=== PATIENT | male | born 1980 | race Caucasian/White ===

== ENCOUNTER 2019-05-24 11:04 | Outpatient (CLI) | payer BC, SELFPAY ==
[2019-05-24 11:29] LABS: Cholesterol 294 mg/dL (0-200); HDL Direct 40 mg/dL; Triglycerides 98 mg/dL (<150)
[2019-05-24 11:40] LABS: LDL Cholesterol Direct 234 mg/dL
== END 2019-05-24 11:05 | disposition home or self-care (01) ==
LOC: ANHLAB 11:05
PROVIDERS: PCP Family Medicine; Visit Provider Nurse Practitioner Family
DX: E78.00 Pure hypercholesterolemia, unspecified (principal)
CPT/HCPCS: 36415; 80061

== ENCOUNTER 2019-08-23 11:14 | Outpatient (CLI) | payer BC, SELFPAY ==
[2019-08-23 11:55] LABS: Alanine Aminotransferase 34 U/L (4-50); Albumin Level 4.5 g/dL (3.5-5.1); Alkaline Phosphatase 81 U/L (38-126); Aspartate Amino Transferase 29 U/L (17-59); Bilirubin,Total 0.5 mg/dL (0.2-1.3); Blood Urea Nitrogen 12 mg/dL (9-20); Calcium 8.9 mg/dL (8.4-10.2); Carbon Dioxide 31 mmol/L (22-30); Chloride 104 mmol/L (98-107); Cholesterol 174 mg/dL (0-200); Estimated Glomerular Filt Rate > 60; Glucose 109 mg/dL (75-110); HDL Direct 35 mg/dL; Potassium 4.9 mmol/L (3.4-5.0); Sodium 140 mmol/L (137-145); Triglycerides 88 mg/dL (<150)
[2019-08-23 12:07] LABS: LDL Cholesterol Direct 112 mg/dL
== END 2019-08-23 11:15 | disposition home or self-care (01) ==
PROVIDERS: PCP Family Medicine; Visit Provider Internal Medicine Cardiovascular Disease
DX: E78.5 Hyperlipidemia, unspecified (principal)
CPT/HCPCS: 36415; 80053; 80061

== ENCOUNTER 2020-09-05 14:07 | Outpatient (CLI) | payer BC, SELFPAY ==
[2020-09-05 14:43] LABS: Alanine Aminotransferase 27 U/L (4-50); Albumin Level 4.7 g/dL (3.5-5.1); Alkaline Phosphatase 92 U/L (38-126); Anion Gap 4 mmol/L (8-16); Aspartate Amino Transferase 24 U/L (17-59); Bilirubin,Total 0.6 mg/dL (0.2-1.3); Blood Urea Nitrogen 11 mg/dL (9-20); Calcium 9.5 mg/dL (8.4-10.2); Carbon Dioxide 32 mmol/L (22-30); Chloride 103 mmol/L (98-107); Cholesterol 195 mg/dL (0-200); Estimated Glomerular Filt Rate > 60; Glucose 99 mg/dL (75-110); HDL Direct 39 mg/dL; Potassium 4.3 mmol/L (3.4-5.0); Sodium 139 mmol/L (137-145); Triglycerides 141 mg/dL (<150)
[2020-09-05 14:54] LABS: LDL Cholesterol Direct 116 mg/dL
== END 2020-09-05 14:08 | disposition home or self-care (01) ==
PROVIDERS: PCP Family Medicine; Visit Provider Internal Medicine Cardiovascular Disease
DX: E78.5 Hyperlipidemia, unspecified (principal)
CPT/HCPCS: 36415; 80053; 80061

== ENCOUNTER 2021-06-01 11:50 | Outpatient (CLI) | payer BC, SELFPAY ==
[2021-06-01 12:08] LABS: Hematocrit 47.1 % (42.0-52.0); Hemoglobin 15.8 g/dL (14.0-18.0); Mean Corpuscular HGB Conc 33.5 g/dl (32-36); Mean Corpuscular Hemoglobin 28.8 pg (26-34); Mean Corpuscular Volume 85.9 fl (80-100); Mean Platelet Volume 8.2 fl (7.4-10.4); Platelet Count Result 315 k/mm3 (150-375); Red Blood Count 5.48 M/mm3 (4.6-6.20); Red Cell Distribution Width 12.5 % (11.5-14.5); White Blood Count 13.2 K/mm3 (4.5-10.0)
[2021-06-01 12:21] LABS: Alanine Aminotransferase 65 U/L (4-50); Albumin Level 4.6 g/dL (3.5-5.1); Alkaline Phosphatase 98 U/L (38-126); Anion Gap 5 mmol/L (8-16); Aspartate Amino Transferase 40 U/L (17-59); Bilirubin,Total 0.5 mg/dL (0.2-1.3); Blood Urea Nitrogen 15 mg/dL (9-20); Calcium 8.9 mg/dL (8.4-10.2); Carbon Dioxide 30 mmol/L (22-30); Chloride 103 mmol/L (98-107); Cholesterol 195 mg/dL (0-200); Estimated Glomerular Filt Rate > 60; Glucose 110 mg/dL (65-110); HDL Direct 27 mg/dL; Potassium 4.3 mmol/L (3.4-5.0); Sodium 138 mmol/L (137-145); Triglycerides 112 mg/dL (<150)
[2021-06-01 12:34] LABS: LDL Cholesterol Direct 137 mg/dL
[2021-06-01 12:59] LABS: Prostate Specific Antigen 1.1 ng/mL (< OR = 4.0)
== END 2021-06-01 11:51 | disposition home or self-care (01) ==
LOC: ANHLAB 11:51
PROVIDERS: PCP Family Medicine; Visit Provider Nurse Practitioner Family
DX: R03.0 Elevated blood-pressure reading, without diagnosis of hypertension (principal); Z13.1 Encounter for screening for diabetes mellitus; Z13.29 Encounter for screening for other suspected endocrine disorder; Z12.5 Encounter for screening for malignant neoplasm of prostate; E78.5 Hyperlipidemia, unspecified
CPT/HCPCS: 36415; 80053; 80061; 84153; 84443; 85027; G0103

== ENCOUNTER 2021-07-03 11:51 | Outpatient (CLI) | payer BC, SELFPAY ==
[2021-07-03 12:12] LABS: Basophils Absolute Auto 0.1 K/mm3 (0.0-0.1); Basophils Percent Auto 0.5 % (0.2-1.2); Eosinophils Absolute Auto 0.4 K/mm3 (0-0.3); Eosinophils Percent Auto 3.9 % (0-4.4); Hematocrit 48.3 % (42.0-52.0); Hemoglobin 15.9 g/dL (14.0-18.0); Immature Granulocyte Absolute 0.05 K/mm3 (0.00-0.031); Immature Granulocyte Percent A 0.5 % (0-0.5); Lymphocytes Absolute Auto 2.37 K/mm3 (0.9-3.2); Lymphocytes Percent Auto 23.8 % (18.3-44.2); Mean Corpuscular HGB Conc 32.9 g/dl (32-36); Mean Corpuscular Hemoglobin 28.4 pg (26-34); Mean Corpuscular Volume 86.3 fl (80-100); Mean Platelet Volume 8.3 fl (7.4-10.4); Monocytes Absolute Auto 0.8 K/mm3 (0.1-0.6); Monocytes Percent Auto 7.7 % (2.6-8.5); Neutrophils Absolute Auto 6.3 K/mm3 (1.3-6.7); Neutrophils Percent Auto 63.6 % (45.5-73.1); Platelet Count Result 274 k/mm3 (150-375)
[2021-07-03 12:23] LABS: Alanine Aminotransferase 52 U/L (4-50); Albumin Level 4.7 g/dL (3.5-5.1); Alkaline Phosphatase 100 U/L (38-126); Anion Gap 6 mmol/L (8-16); Aspartate Amino Transferase 34 U/L (17-59); Bilirubin,Total 0.5 mg/dL (0.2-1.3); Blood Urea Nitrogen 11 mg/dL (9-20); Calcium 8.9 mg/dL (8.4-10.2); Carbon Dioxide 29 mmol/L (22-30); Chloride 106 mmol/L (98-107); Estimated Glomerular Filt Rate > 60; Glucose 104 mg/dL (65-110); Sodium 141 mmol/L (137-145)
== END 2021-07-03 11:52 | disposition home or self-care (01) ==
PROVIDERS: PCP Family Medicine; Referring Provider Psychiatry & Neurology Psychiatry; Visit Provider Family Medicine
DX: D72.829 Elevated white blood cell count, unspecified (principal); R73.01 Impaired fasting glucose; R74.01 Elevation of levels of liver transaminase levels
CPT/HCPCS: 36415; 80053; 85025

== ENCOUNTER 2022-10-01 10:08 | Outpatient (CLI) | payer BC, SELFPAY ==
[2022-10-01 11:01] LABS: Alanine Aminotransferase 41 U/L (6-50); Albumin Level 4.5 g/dL (3.5-5.1); Alkaline Phosphatase 94 U/L (38-126); Anion Gap 5 mmol/L (8-16); Aspartate Amino Transferase 27 U/L (17-59); Bilirubin,Total 0.4 mg/dL (0.2-1.3); Blood Urea Nitrogen 10 mg/dL (9-20); Calcium 8.7 mg/dL (8.4-10.2); Carbon Dioxide 29 mmol/L (22-30); Chloride 105 mmol/L (98-107); Cholesterol 128 mg/dL (0-200); Estimated Glomerular Filt Rate > 60; Glucose 98 mg/dL (65-110); HDL Direct 29 mg/dL; Sodium 139 mmol/L (137-145); Triglycerides 124 mg/dL (<150)
[2022-10-01 11:12] LABS: LDL Cholesterol Direct 74 mg/dL
== END 2022-10-01 10:09 | disposition home or self-care (01) ==
PROVIDERS: PCP Family Medicine; Visit Provider Internal Medicine Cardiovascular Disease
DX: E78.5 Hyperlipidemia, unspecified (principal)
CPT/HCPCS: 36415; 80053; 80061

== ENCOUNTER 2022-10-22 07:34 | Outpatient (CLI) | payer BC, SELFPAY ==
--- NOTE | 2022-10-22 | EST_ITS ---
Patient Info Name: Unruly Avalos Age: 41 years : 1980 Gender: Male Ht: 68 in Wt: 195 lbs BSA: 2.08 m2 HR: 62 bpm BP: 136 / 63 mmHg Heart Rhythm: Sinus Rhythm Exam Date: 10/22/2022 8:36 AM Exam Location: [facility] Stress Admit Date: 10/22/2022 Staff Attending Provider: Referring Physician: JARRETT Berg; Exercise Technologist: Mireille Rowell, RADHA Exercise Physician: Elton Valadez DO Exam Type: CA stress test treadmill Study Info Indications R07.9 - Chest pain, unspecified A treadmill exercise stress test was performed. Summary 1. 1. Negative Clif exercise stress test for ischemic ST changes by ECG criteria. 2. 2. Good functional capacity, achieving 12 METs of workload. 3. 3. Appropriate HR response to exercise. 4. 4. Appropriate HR recovery at 1 minute post exercise. 5. 5. No imaging with stress testing. 6. 6. Patient informed of the above results. Protocol: Clif Stress ECG Details Stage: REST Duration (min): 1 min : 42 sec Speed (mph): 0.0 Grade (%): 0 HR (bpm): 62 SBP (mmHg): 136 DBP (mmHg): 83 METS: --- Stage: REST Duration (min): 6 min : 32 sec Speed (mph): 0.0 Grade (%): 0 HR (bpm): 66 SBP (mmHg): 136 DBP (mmHg): 83 METS: --- Stage: STAGE 1 Duration (min): 1 min : 0 sec Speed (mph): 1.7 Grade (%): 10 HR (bpm): 94 SBP (mmHg): 136 DBP (mmHg): 83 METS: --- Stage: STAGE 1 Duration (min): 2 min : 0 sec Speed (mph): 1.7 Grade (%): 10 HR (bpm): 99 SBP (mmHg): 136 DBP (mmHg): 83 METS: --- Stage: STAGE 1 Duration (min): 3 min : 0 sec Speed (mph): 1.7 Grade (%): 10 HR (bpm): 106 SBP (mmHg): 152 DBP (mmHg): 91 METS: --- Stage: STAGE 2 Duration (min): 1 min : 0 sec Speed (mph): 2.5 Grade (%): 12 HR (bpm): 113 SBP (mmHg): 152 DBP (mmHg): 91 METS: --- Stage: STAGE 2 Duration (min): 2 min : 0 sec Speed (mph): 2.5 Grade (%): 12 HR (bpm): 116 SBP (mmHg): 162 DBP (mmHg): 93 METS: --- Stage: STAGE 2 Duration (min): 3 min : 0 sec Speed (mph): 2.5 Grade (%): 12 HR (bpm): 113 SBP (mmHg): 162 DBP (mmHg): 93 METS: --- Stage: STAGE 3 Duration (min): 1 min : 0 sec Speed (mph): 3.4 Grade (%): 14 HR (bpm): 128 SBP (mmHg): 167 DBP (mmHg): 115 METS: --- Stage: STAGE 3 Duration (min): 2 min : 0 sec Speed (mph): 3.4 Grade (%): 14 HR (bpm): 130 SBP (mmHg): 167 DBP (mmHg): 115 METS: --- Stage: STAGE 3 Duration (min): 3 min : 0 sec Speed (mph): 3.4 Grade (%): 14 HR (bpm): 132 SBP (mmHg): 184 DBP (mmHg): 110 METS: --- Stage: STAGE 4 Duration (min): 1 min : 0 sec Speed (mph): 4.2 Grade (%): 16 HR (bpm): 152 SBP (mmHg): 184 DBP (mmHg): 110 METS: --- Stage: STAGE 4 Duration (min): 1 min : 59 sec Speed (mph): 4.2 Grade (%): 16 HR (bpm): 158 SBP (mmHg): 169 DBP (mmHg): 98 METS: --- Stage: RECOVERY D
--- NOTE | ~2022-10-22 | CT_ITS ---
EXAMINATION: CTA chest DATE: 10/22/2022 08:22 INDICATION: Aortic ectasia, unspecified site. TECHNIQUE: Computed tomographic angiography (CTA) of the chest was performed with 100 mL Omnipaque-35 0 intravenous contrast. Automated exposure control and iterative reconstruction technique were employ ed. The dose-length product was 605.44 mGy-cm. Maximum intensity projection 3D-reconstructions of the aorta and other arteries were constructed by the technologist on a separate workstation. COMPARISON: CT abdomen and pelvis 05/21/2016 FINDINGS: There is mild dependent atelectasis bilaterally. No pleural effusion. The heart size is nor mal. No pericardial effusion. The aorta measures 4.3 cm at the sinuses of Valsalva, 3.5 cm at the sin otubular junction, 3.6 cm in the mid ascending aorta, 2.9 cm at the aortic isthmus, and 2.2 cm in the mid descending aorta. There is mild chronic anterior wedging of T12 vertebral body. IMPRESSION: 1. Aortic ectasia at the sinuses of Valsalva. Reviewed, dictated and finalized at location A.
== END 2022-10-22 07:35 | disposition home or self-care (01) ==
PROVIDERS: PCP Family Medicine; Visit Provider Internal Medicine Cardiovascular Disease
DX: I77.819 Aortic ectasia, unspecified site (principal)
CPT/HCPCS: 71275; 93017; Q9967

== ENCOUNTER 2023-03-17 15:50 | Outpatient (CLI) | payer BC, SELFPAY ==
[2023-03-17 16:30] LABS: Alanine Aminotransferase 55 U/L (6-50); Albumin Level 4.8 g/dL (3.5-5.1); Alkaline Phosphatase 121 U/L (38-126); Anion Gap 14 mmol/L (8-16); Aspartate Amino Transferase 36 U/L (17-59); Bilirubin,Total 0.5 mg/dL (0.2-1.3); Blood Urea Nitrogen 11 mg/dL (9-20); Calcium 9.2 mg/dL (8.4-10.2); Carbon Dioxide 25 mmol/L (22-30); Chloride 100 mmol/L (98-107); Estimated Glomerular Filt Rate > 60; Glucose 157 mg/dL (65-110); Potassium 3.8 mmol/L (3.4-5.0); Sodium 139 mmol/L (137-145)
[2023-03-17 17:00] LABS: Prostate Specific Antigen 1.9 ng/mL (< OR = 4.0)
[2023-03-18 12:26] LABS: Hepatitis B Surface Antigen Negative (Negative)
[2023-03-18 12:31] LABS: HAV RESULT Negative (Negative); Hepatitis B Core IgM Result Negative (Negative)
[2023-03-18 12:43] LABS: Hepatitis C Virus Antibody Negative (Negative)
== END 2023-03-17 15:51 | disposition home or self-care (01) ==
LOC: ANHLAB 15:52
PROVIDERS: PCP Family Medicine; Visit Provider Physician Assistant Medical
DX: R79.89 Other specified abnormal findings of blood chemistry (principal); Z12.5 Encounter for screening for malignant neoplasm of prostate; R74.8 Abnormal levels of other serum enzymes
CPT/HCPCS: 36415; 80053; 80074; 84153; G0103

== ENCOUNTER 2023-04-12 02:47 | Day surgery (SDC) | payer BC, SELFPAY ==
[2023-03-23 13:33] VITALS: BMI 30.2
--- NOTE | 2023-04-08 09:19 | SUR.PREOP ---
Patient called regarding upcoming procedure. Reviewed preop instructions, appointment times, and procedure prep.
[2023-04-12 09:25] VITALS: BP 119/83; PULSE 84; RESP 16; TEMP 36.7; O2SAT 98; BMI 29.5
[2023-04-12] MEDS: LACTATED RINGERS 1,000 ML 150 ML IV CONT (09:58)
--- NOTE | 2023-04-12 10:22 | WPDANESEPPF ---
Anes - Initial Pre Proc Eval Procedure: Operation Date: 04/12/23 11:00 Proposed Procedures p Esophagogastroduodenoscopy & Colonoscopy - Juan Alberto Mckeon MD Date/Time: 04/12/23 10:22 Surgeon: Juan Alberto Mckeon MD Pre Op Diagnosis: Nausea,Vomiting, GERD,Left Lower Quad Pain, Patient Data Age: 42 Gender: M Height: 1.73 m Weight: 30.2 kg Last Vital Signs Temp 98.1 F 04/12/23 09:25 Pulse 84 04/12/23 09:25 Resp 16 04/12/23 09:25 BP 119/83 04/12/23 09:25 Pulse Ox 98 04/12/23 09:25 O2 Del Method Room Air 04/12/23 09:25 Allergies Allergy/AdvReac Type Severity Reaction Status Date / Time Penicillins Allergy Unknown Unknown Verified 03/18/23 10:06 Beta-Blockers AdvReac Intermediate Joint Pain Verified 03/23/23 13:31 (Beta-Adrenergic Bloc Home Medications Medication Instructions Recorded Confirmed Type brexpiprazole 1 mg tablet (Rexulti) 1 mg PO DAILY 05/25/19 03/23/23 History hydroxyzine HCl 25 mg tablet 25 mg PO ONCE PRN Nausea And 05/25/19 03/23/23 History Vomiting fluticasone propionate 50 2 spray intranasal DAILY #16 grams 08/21/21 03/23/23 Rx mcg/actuation nasal spray,suspension (Flonase Allergy Relief) clonidine HCl 0.2 mg tablet 0.2 mg PO BID 09/22/21 03/23/23 History duloxetine 60 mg capsule,delayed See Rx Instructions PO DAILY 09/22/21 03/23/23 History release (Cymbalta) lamotrigine 100 mg tablet,extended 100 mg PO BID 09/22/21 03/23/23 History release 24 hr viloxazine 200 mg capsule,extended 600 mg PO DAILY 12/13/22 03/23/23 History release 24 hr (Qelbree) atorvastatin 40 mg tablet See Rx Instructions .Route 12/17/22 03/23/23 Rx .COMPLEX #30 tabs amlodipine 5 mg tablet 5 mg PO DAILY #90 tabs 02/02/23 03/23/23 Rx daridorexant 25 mg tablet (Quviviq) 25 mg PO QHS 10/18/23 12/06/23 History omeprazole 40 mg capsule,delayed 40 mg PO DAILY #90 caps 04/01/23 Rx release Patient hx anesthesia problems: none Family hx anesthesia problems: none Results Review: All pre-operative results and documents have been reviewed as part of the pre-operative evaluation. [facility] Past Medical History Medical History Abnormal heart rhythm BMI 28.0-28.9,adult BMI 29.0-29.9,adult High cholesterol History of migraine headaches Hypertension Personal history of nicotine dependence Psychiatric diagnosis Seizures Family History Family History Grandparent Family history of lung cancer Family history of throat cancer Father Hypertension Mother Hypertension High cholesterol Skin cancer Social History Social History Smoking packs per day: 0.5 Smoking cigarettes per day: 10.0 Years smoked: 2 Smoking pack-years: 1.00 Smoking status: Former smoker Tobacco type: cigarettes Alcohol intake: never Substance use type: does not use Living arrangements: with family Spiritual care concerns: No Anes - Eval Final PreProcedure Day of Procedure 04/12/23 10:22 Patient weight: normal Heart: regular rate and rhythm Lungs: clear to auscultation Airway: Mallampati scale class II Neurological: alert and oriented Last oral intake: >/= 8 hours ASA classification: III Emergent: no Anesthetic plan: proceed Anesthesia type and monitoring: general GIVS and standard monitoring Results Review: All pre-operative results and documents have been reviewed as part of the pre-operative evaluation. Informed Consent: The patient's anesthetic plan and its attendant risks and benefits were discussed with the patient/family/POA. Questions were solicited and answers provided to the satisfaction of the patient/family/POA.
--- NOTE | 2023-04-12 10:39 | WPDHPUPDATE1 ---
History and Physical Update Update Date/Time: 04/12/23 10:39 History and Physical has been reviewed, including an updated exam of the patient. There are NO changes in the patient's condition. Risks, benefits, and alternatives have been discussed and questions answered. Patient agrees to proceed with procedure.
--- NOTE | 2023-04-12 11:04 | SUR.OPER ---
EGD END 1100 COLONOSCOPY START 110
[2023-04-12 11:18] VITALS: BP 96/60; PULSE 74; RESP 18; O2SAT 96
[2023-04-12 11:28] VITALS: BP 98/60; PULSE 68; RESP 17; O2SAT 92
[2023-04-12 11:38] VITALS: BP 99/67; PULSE 60; RESP 15; O2SAT 98
== END 2023-04-12 11:50 | disposition home or self-care (01) ==
PROVIDERS: PCP Family Medicine; Visit Provider Internal Medicine Gastroenterology
PROC: 0DJ08ZZ Inspection of Upper Intestinal Tract, Via Natural or Artificial Opening Endoscopic (ICD-10-PCS; CPT 43235; principal; 2023-04-12 11:00)
DX: Z12.11 Encounter for screening for malignant neoplasm of colon (principal); K57.30 Diverticulosis of large intestine without perforation or abscess without bleeding; K64.8 Other hemorrhoids; K29.50 Unspecified chronic gastritis without bleeding; K21.00 Gastro-esophageal reflux disease with esophagitis, without bleeding; E78.00 Pure hypercholesterolemia, unspecified; I10 Essential (primary) hypertension; G40.909 Epilepsy, unspecified, not intractable, without status epilepticus; Z87.891 Personal history of nicotine dependence
CPT/HCPCS: 45378; 43239; 88305; J2001; J2704; J7120

== ENCOUNTER 2023-09-30 10:12 | Outpatient (CLI) | payer BC, SELFPAY ==
[2023-09-30 10:41] LABS: Hemoglobin A1C 5.7 % (<5.7)
[2023-09-30 10:47] LABS: Alanine Aminotransferase 52 U/L (6-50); Albumin Level 4.6 g/dL (3.5-5.1); Alkaline Phosphatase 109 U/L (38-126); Anion Gap 9 mmol/L (4-12); Aspartate Amino Transferase 32 U/L (17-59); Bilirubin,Total 0.7 mg/dL (0.2-1.3); Blood Urea Nitrogen 12 mg/dL (9-20); Carbon Dioxide 27 mmol/L (22-30); Chloride 105 mmol/L (98-107); Cholesterol 139 mg/dL (0-200); Estimated Glomerular Filt Rate > 60; Glucose 117 mg/dL (65-110); HDL Direct 28 mg/dL; Sodium 141 mmol/L (137-145); Triglycerides 125 mg/dL (<150)
[2023-09-30 10:58] LABS: LDL Cholesterol Direct 97 mg/dL
== END 2023-09-30 10:13 | disposition home or self-care (01) ==
LOC: ANHLAB 10:14
PROVIDERS: PCP Family Medicine; Visit Provider Internal Medicine Cardiovascular Disease
DX: E78.5 Hyperlipidemia, unspecified (principal); Z13.1 Encounter for screening for diabetes mellitus
CPT/HCPCS: 36415; 80053; 80061; 83036

== ENCOUNTER 2023-12-08 09:47 | Outpatient (CLI) | payer BC, SELFPAY ==
--- NOTE | ~2023-12-08 | XR_ITS ---
EXAM: XR shoulder LT min 2V DATE: 12/08/2023 10:05 HISTORY: No injury neck and left arm pain for 7-10 days . COMPARISON: None available. FINDINGS: Normal mineralization. No fracture or dislocation. No lytic or blastic lesion. Joint space s are maintained. Focal rotator cuff calcification No erosion or periosteal change. Soft tissues with in normal limits. IMPRESSION: Mild rotator cuff calcific tendinitis. Reviewed, dictated and finalized at location K.
--- NOTE | ~2023-12-08 | XR_ITS ---
EXAM: XR cervical spine 4-5V DATE: 12/08/2023 10:05 HISTORY: No injury neck and left arm pain for 7-10 days . COMPARISON: None available. FINDINGS: Craniocervical association and atlantoaxial joint are aligned. No prevertebral soft tissue swelling. Vertebral bodies are aligned. Very mild disc space narrowing and marginal osteophytosis in the mid and lower cervical spine. Very mild facet hypertrophy in the mid and lower cervical spine No rmal disc spaces. Normal facets and posterior elements. IMPRESSION: Mild multilevel degenerative disc disease and facet arthropathy. Reviewed, dictated and finalized at location K.
== END 2023-12-08 09:48 ==
PROVIDERS: PCP Family Medicine
DX: M50.30 Other cervical disc degeneration, unspecified cervical region (principal); M77.8 Other enthesopathies, not elsewhere classified
CPT/HCPCS: 72050; 73030

== ENCOUNTER 2024-09-28 10:37 | Outpatient (CLI) | payer BC, SELFPAY ==
--- OUTSIDE RECORDS SUMMARY | 2024-09-28 10:41 | XMS_ITS | Patient Health Record ---
Author Organization [facility] [employer] Address [address] [place] [address] Care Team Providers Care Business Architect Name Role Phone Elliott Montoya Unavailable [phone] Allergies Allergen (clinical drug ingredient) Drug/Non Drug Allergy documented on EMR Reaction Allergy Type Onset Date Status Substance with penicillin structure and antibacterial mechanism of action (substance) Penicillins Unknown Drug Allergy 08/26/2023 Active propranolol Propranolol Unknown Drug Allergy 08/26/2023 Ac tive Reason For Referral No Information Medications Medication SIG (Take, Route, Frequency, Duration) Notes Start Date End Date Status amLODIPine Besylate 5 MG Oral 08/26/2023 Active Omeprazole 40 MG Oral 08/26/2023 Ac tive cloNIDine HCl ER 0.1 MG 2 tablets Orally twice daily for 90 days Active Fluticasone Propionate Diskus 50 MCG/ACT Inhalation *Reorder from [employer] for eRx and Interaction Alerts* 08/26/2023 Active hydrOXYzine HCl 25 MG Oral 08/26/2023 Active Atorvastatin Calcium 40 MG Oral 08/26/2023 Active DULoxetine HCl 60 MG 1 capsule Oral Once a day for 90 days Active lamoTRIgine ER 100 MG 1 tablet Oral twice daily for 90 days Active Rexulti 1 mg 1 tablet Oral once daily for 90 days Active Immunizations Vaccine Route Administration Date Status Comme nts Td (adult), adsorbed Unknown 11/26/1995 Administered Social History Tobacco Use: Social History Observation Description Date Details (start date - stop date) Light tobacco s moker NA - NA Sex Assigned At : Social History Observation Description Sex Assigned At Male Tobacco Control (Standard) Question Answer Notes Tobacco use: Light tobacco smoker Problems Problem Type SNOMED Code ICD Code Onset Dates Problem Status W/U Status Risk Notes Problem Mild recurrent major depression (05034681) Major depressive disorder, recurrent, mild (F33.0) Active confirmed Problem Generalized anxiety disorder (50224608) Generalized anxiety disorder (F41.1) Active confirmed Problem Insomnia disorder related to another mental disorder (10844149) Insomnia due to other mental disorder (F51.05) Active confirmed Problem Attention deficit hyperactivity disorder, combined type (15196071) Attention-deficit hyperactivity disorder, combined type (F90.2) Active confirmed Problem Panic disorder (577051331) Panic disorder [episodic paroxysmal anxiety] without agoraphobia (F41.0) Active confirmed Vital Signs Heart Rate 76 /min 07/20/2024 Height-cm 175.26 cm 07/20/2024 Blood pressure diastolic 90 mm Hg 07/20/2024 Weight-kg 92.35 kg 07/20/2024 Height 69.00 in 07/20/2024 Blood pressure systolic 138 mm Hg 07/20/2024 Weight 203.6 lbs 07/20/2024 BMI 30.06 kg/m2 07/20/2024 Encounters Encounter Location Date Provider Diagnosis [facility] [employer] [address] [facility] [address] [address] 11/25/2023 Elliott Montoya Insomnia due to othe r mental disorder F51.05 ; Generalized anxiety disorder F41.1 ; Panic disorder [episodic paroxysmal anxiety] without agoraphobia F41.0 ; Attention-deficit hyperactivity disorder, combined type F90.2 and Major depressive disorder, recurrent, mild F33.0 [employer] [facility] [address] [facility] [address] [address] 03/23/2024 Elliott Montoya Insomnia due to othe r mental disorder F51.05 ; Generalized anxiety disorder F41.1 ; Panic disorder [episodic paroxysmal anxiety] without agoraphobia F41.0 ; Attention-deficit hyperactivity disorder, combined type F90.2 and Major depressive disorder, recurrent, mild F33.0 [employer] [facility] [address] [facility] [address] [facility] [address] [place] [address] 07/20/2024 Elliott Montoya Major depressive disorder, recurrent, mild F33.0 ; Attention-deficit hyperactivity disorder, combined type F90.2 ; Generalized anxiety disorder F41.1 ; Insomnia due to other mental disorder F51.05 ; Panic disorder [episodic paroxysmal anxiety] without agoraphobia F41.0 ; Encounter for screening for cardiovascular disorders Z13.6 ; Dietary counseling and surveillance Z71.3 and Encounter for screening for depression Z13.31 [facility] [employer] [facility] [address] [place] [address] 12/26/2023 Elliott Montoya Attention-deficit hyperactivity disorder, combined type F90.2 [facility] [employer] [facility] [address] [place] [address] 07/27/2024 Elliott Montoya Insomnia due to othe r mental disorder F51.05 Assessments Encounter Date Diagnosis (ICD Code) Assessment Notes Treatment Notes Treatment Clinical Notes Section Notes 07/27/2024 Insomnia due to other mental disorder (ICD-10 - F51.05) 12/26/2023 Attention-defici t hyperactivity disorder, combined type (ICD-10 - F90.2) 03/23/2024 Insomnia due to other mental disorder (ICD-10 - F51.05) stable 1. Anxiety and stress - Patient reports increased stress due to personal life events, including divorce, dating, and issues with ex- and her children. - Plan: Continue current medications: lamotrigine ER 100 mg twice a day, duloxetine 60 mg daily, Rexulti 1 mg daily, and clonidine ER 0.12 mg twice a day. Encourage patient to engage in stress-reducing activities, such as exercise, meditation, or hobbies. Consider referral to a therapist for additional support in managing stress and anxiety. 2. Sleep disturbances - Patient reports sleepiness comes and goes, possibly related to stress and personal life events. - Plan: Encourage patient to maintain a consistent sleep schedule and practice good sleep hygiene. Monitor patient's response to current medications and consider adjustments if sleep disturbances persist. 3. Attention deficit disorder (ADD) - Patient reports a slightly higher case of ADD, possibly related to stopping medication. - Plan: Continue monitoring patient's response to current medications and consider adjustments if necessary. Encourage patient to implement strategies for managing ADD, such as organization and time management techniques. 4. Medication side effects - Patient reports feeling better after stopping Qelbree due to physical side effects. - Plan: Continue monitoring patient's response to current medications and consider adjustments if side effects persist or worsen. Encourage patient to report any new or concerning side effects. 5. Follow-up appointments - Plan: Schedule a follow-up appointment in 4-6 weeks to assess patient's progress and response to current treatment plan. Encourage patient to contact the clinic if any concerns or significant changes in symptoms arise before the next scheduled appointment. 07/20/2024 Major depressive disorder, recurrent, mild (ICD-10 - F33.0) cont lamotrigine ER 100mg bid ; duloxetine 60mg daily, rexulti 1mg daily 11/25/2023 Generalized anxiety disorder (ICD-10 - F41.1) 1. FMLA paperwork issue: - The patient reported that their FMLA request was denied due to insufficient information. The patient will bring a blank copy of the FMLA paperwork for the provider to complete with the necessary information. 2. Home life stress: - The patient is experiencing increased stress at home due to a recent incident involving their daughter's lost cell phone. Plan: - Encourage the patient to practice stress management techniques and consider seeking additional support if needed. 3. Musculoskeletal pain: - The patient reported experiencing pain in their back, numbness in their arm, and discomfort in their left knee. Plan: - Recommend the patient to follow up with their primary care provider for further evaluation and management. 4. Depression: - The patient reported an increase in depressive symptoms in recent days. - Continue current medications for major depressive disorder: duloxetine 60mg once a day and Rexulti 1mg once a day. Plan: - Monitor the patient's mood and consider adjusting the treatment plan if symptoms persist or worsen. 5. Sleep issues: - The patient reported improved sleep quality after receiving an air conditioner for their room. Plan: - Encourage the patient to maintain good sleep hygiene and continue using their CPAP machine as prescribed. 6. ADHD: - The patient reported taking Qelbree 200mg (three capsules) once a day and clonidine ER 0.1mg (two capsules) twice a day for ADHD management. The patient has stopped taking Quviviq due to ineffectiveness. Plan: - Continue the current ADHD medications and monitor the patient's progress. 7. Mood stabilization: - The patient reported that lamotrigine ER 100mg twice a day has been helpful in stabilizing their mood and reducing irritability. Plan: - Continue the current medication regimen and monitor the patient's mood stability. 9. Medication refills: Plan: - Refills have been sent for the patient's ADHD medications (Qelbree and clonidine ER) and major depressive disorder medications (lamotrigine ER, duloxetine, and Rexulti). Follow-up: - Schedule a follow-up appointment in three months to monitor the patient's progress and adjust the treatment plan as needed. The patient should bring the FMLA paperwork to the next appointment for completion. 11/25/2023 Insomnia due to other mental disorder (ICD-10 - F51.05) stable 1. FMLA paperwork issue: - The patient reported that their FMLA request was denied due to insufficient information. The patient will bring a blank copy of the FMLA paperwork for the provider to complete with the necessary information. 2. Home life stress: - The patient is experiencing increased stress at home due to a recent incident involving their daughter's lost cell phone. Plan: - Encourage the patient to practice stress management techniques and consider seeking additional support if needed. 3. Musculoskeletal pain: - The patient reported experiencing pain in their back, numbness in their arm, and discomfort in their left knee. Plan: - Recommend the patient to follow up with their primary care provider for further evaluation and management. 4. Depression: - The patient reported an increase in depressive symptoms in recent days. - Continue current medications for major depressive disorder: duloxetine 60mg once a day and Rexulti 1mg once a day. Plan: - Monitor the patient's mood and consider adjusting the treatment plan if symptoms persist or worsen. 5. Sleep issues: - The patient reported improved sleep quality after receiving an air conditioner for their room. Plan: - Encourage the patient to maintain good sleep hygiene and continue using their CPAP machine as prescribed. 6. ADHD: - The patient reported taking Qelbree 200mg (three capsules) once a day and clonidine ER 0.1mg (two capsules) twice a day for ADHD management. The patient has stopped taking Quviviq due to ineffectiveness. Plan: - Continue the current ADHD medications and monitor the patient's progress. 7. Mood stabilization: - The patient reported that lamotrigine ER 100mg twice a day has been helpful in stabilizing their mood and reducing irritability. Plan: - Continue the current medication regimen and monitor the patient's mood stability. 9. Medication refills: Plan: - Refills have been sent for the patient's ADHD medications (Qelbree and clonidine ER) and major depressive disorder medications (lamotrigine ER, duloxetine, and Rexulti). Follow-up: - Schedule a follow-up appointment in three months to monitor the patient's progress and adjust the treatment plan as needed. The patient should bring the FMLA paperwork to the next appointment for completion. 11/25/2023 Panic disorder [episodic paroxysmal anxiety] without agoraphobia (ICD-10 - F41.0) 1. FMLA paperwork issue: - The patient reported that their FMLA request was denied due to insufficient information. The patient will bring a blank copy of the FMLA paperwork for the provider to complete with the necessary information. 2. Home life stress: - The patient is experiencing increased stress at home due to a recent incident involving their daughter's lost cell phone. Plan: - Encourage the patient to practice stress management techniques and consider seeking additional support if needed. 3. Musculoskeletal pain: - The patient reported experiencing pain in their back, numbness in their arm, and discomfort in their left knee. Plan: - Recommend the patient to follow up with their primary care provider for further evaluation and management. 4. Depression: - The patient reported an increase in depressive symptoms in recent days. - Continue current medications for major depressive disorder: duloxetine 60mg once a day and Rexulti 1mg once a day. Plan: - Monitor the patient's mood and consider adjusting the treatment plan if symptoms persist or worsen. 5. Sleep issues: - The patient reported improved sleep quality after receiving an air conditioner for their room. Plan: - Encourage the patient to maintain good sleep hygiene and continue using their CPAP machine as prescribed. 6. ADHD: - The patient reported taking Qelbree 200mg (three capsules) once a day and clonidine ER 0.1mg (two capsules) twice a day for ADHD management. The patient has stopped taking Quviviq due to ineffectiveness. Plan: - Continue the current ADHD medications and monitor the patient's progress. 7. Mood stabilization: - The patient reported that lamotrigine ER 100mg twice a day has been helpful in stabilizing their mood and reducing irritability. Plan: - Continue the current medication regimen and monitor the patient's mood stability. 9. Medication refills: Plan: - Refills have been sent for the patient's ADHD medications (Qelbree and clonidine ER) and major depressive disorder medications (lamotrigine ER, duloxetine, and Rexulti). Follow-up: - Schedule a follow-up appointment in three months to monitor the patient's progress and adjust the treatment plan as needed. The patient should bring the [place] paperwork to the next appointment for completion. 03/23/2024 Generalized anxiety disorder (ICD-10 - F41.1) 1. Anxiety and stress - Patient reports increased stress due to personal life events, including divorce, dating, and issues with ex- and her children. - Plan: Continue current medications: lamotrigine ER 100 mg twice a day, duloxetine 60 mg daily, Rexulti 1 mg daily, and clonidine ER 0.12 mg twice a day. Encourage patient to engage in stress-reducing activities, such as exercise, meditation, or hobbies. Consider referral to a therapist for additional support in managing stress and anxiety. 2. Sleep disturbances - Patient reports sleepiness comes and goes, possibly related to stress and personal life events. - Plan: Encourage patient to maintain a consistent sleep schedule and practice good sleep hygiene. Monitor patient's response to current medications and consider adjustments if sleep disturbances persist. 3. Attention deficit disorder (ADD) - Patient reports a slightly higher case of ADD, possibly related to stopping medication. - Plan: Continue monitoring patient's response to current medications and consider adjustments if necessary. Encourage patient to implement strategies for managing ADD, such as organization and time management techniques. 4. Medication side effects - Patient reports feeling better after stopping Qelbree due to physical side effects. - Plan: Continue monitoring patient's response to current medications and consider adjustments if side effects persist or worsen. Encourage patient to report any new or concerning side effects. 5. Follow-up appointments - Plan: Schedule a follow-up appointment in 4-6 weeks to assess patient's progress and response to current treatment plan. Encourage patient to contact the clinic if any concerns or significant changes in symptoms arise before the next scheduled appointment. 07/20/2024 Attention-defici t hyperactivity disorder, combined type (ICD-10 - F90.2) cont clonidine er to 0.1mg 2 tabs bid 03/23/2024 Panic disorder [episodic paroxysmal anxiety] without agoraphobia (ICD-10 - F41.0) 1. Anxiety and stress - Patient reports increased stress due to personal life events, including divorce, dating, and issues with ex- and her children. - Plan: Continue current medications: lamotrigine ER 100 mg twice a day, duloxetine 60 mg daily, Rexulti 1 mg daily, and clonidine ER 0.12 mg twice a day. Encourage patient to engage in stress-reducing activities, such as exercise, meditation, or hobbies. Consider referral to a therapist for additional support in managing stress and anxiety. 2. Sleep disturbances - Patient reports sleepiness comes and goes, possibly related to stress and personal life events. - Plan: Encourage patient to maintain a consistent sleep schedule and practice good sleep hygiene. Monitor patient's response to current medications and consider adjustments if sleep disturbances persist. 3. Attention deficit disorder (ADD) - Patient reports a slightly higher case of ADD, possibly related to stopping medication. - Plan: Continue monitoring patient's response to current medications and consider adjustments if necessary. Encourage patient to implement strategies for managing ADD, such as organization and time management techniques. 4. Medication side effects - Patient reports feeling better after stopping Qelbree due to physical side effects. - Plan: Continue monitoring patient's response to current medications and consider adjustments if side effects persist or worsen. Encourage patient to report any new or concerning side effects. 5. Follow-up appointments - Plan: Schedule a follow-up appointment in 4-6 weeks to assess patient's progress and response to current treatment plan. Encourage patient to contact the clinic if any concerns or significant changes in symptoms arise before the next scheduled appointment. 11/25/2023 Attention-defici t hyperactivity disorder, combined type (ICD-10 - F90.2) cont clonidine er to 0.1mg 2 tabs bid qelbree 200mg 3 capsules daily 1. FMLA paperwork issue: - The patient reported that their FMLA request was denied due to insufficient information. The patient will bring a blank copy of the FMLA paperwork for the provider to complete with the necessary information. 2. Home life stress: - The patient is experiencing increased stress at home due to a recent incident involving their daughter's lost cell phone. Plan: - Encourage the patient to practice stress management techniques and consider seeking additional support if needed. 3. Musculoskeletal pain: - The patient reported experiencing pain in their back, numbness in their arm, and discomfort in their left knee. Plan: - Recommend the patient to follow up with their primary care provider for further evaluation and management. 4. Depression: - The patient reported an increase in depressive symptoms in recent days. - Continue current medications for major depressive disorder: duloxetine 60mg once a day and Rexulti 1mg once a day. Plan: - Monitor the patient's mood and consider adjusting the treatment plan if symptoms persist or worsen. 5. Sleep issues: - The patient reported improved sleep quality after receiving an air conditioner for their room. Plan: - Encourage the patient to maintain good sleep hygiene and continue using their CPAP machine as prescribed. 6. ADHD: - The patient reported taking Qelbree 200mg (three capsules) once a day and clonidine ER 0.1mg (two capsules) twice a day for ADHD management. The patient has stopped taking Quviviq due to ineffectiveness. Plan: - Continue the current ADHD medications and monitor the patient's progress. 7. Mood stabilization: - The patient reported that lamotrigine ER 100mg twice a day has been helpful in stabilizing their mood and reducing irritability. Plan: - Continue the current medication regimen and monitor the patient's mood stability. 9. Medication refills: Plan: - Refills have been sent for the patient's ADHD medications (Qelbree and clonidine ER) and major depressive disorder medications (lamotrigine ER, duloxetine, and Rexulti). Follow-up: - Schedule a follow-up appointment in three months to monitor the patient's progress and adjust the treatment plan as needed. The patient should bring the [facility] paperwork to the next appointment for completion. 07/20/2024 Generalized anxiety disorder (ICD-10 - F41.1) 07/20/2024 Insomnia due to other mental disorder (ICD-10 - F51.05) 07/20/2024 Panic disorder [episodic paroxysmal anxiety] without agoraphobia (ICD-10 - F41.0) 03/23/2024 Attention-defici t hyperactivity disorder, combined type (ICD-10 - F90.2) cont clonidine er to 0.1mg 2 tabs bid 1. Anxiety and stress - Patient reports increased stress due to personal life events, including divorce, dating, and issues with ex- and her children. - Plan: Continue current medications: lamotrigine ER 100 mg twice a day, duloxetine 60 mg daily, Rexulti 1 mg daily, and clonidine ER 0.12 mg twice a day. Encourage patient to engage in stress-reducing activities, such as exercise, meditation, or hobbies. Consider referral to a therapist for additional support in managing stress and anxiety. 2. Sleep disturbances - Patient reports sleepiness comes and goes, possibly related to stress and personal life events. - Plan: Encourage patient to maintain a consistent sleep schedule and practice good sleep hygiene. Monitor patient's response to current medications and consider adjustments if sleep disturbances persist. 3. Attention deficit disorder (ADD) - Patient reports a slightly higher case of ADD, possibly related to stopping medication. - Plan: Continue monitoring patient's response to current medications and consider adjustments if necessary. Encourage patient to implement strategies for managing ADD, such as organization and time management techniques. 4. Medication side effects - Patient reports feeling better after stopping Qelbree due to physical side effects. - Plan: Continue monitoring patient's response to current medications and consider adjustments if side effects persist or worsen. Encourage patient to report any new or concerning side effects. 5. Follow-up appointments - Plan: Schedule a follow-up appointment in 4-6 weeks to assess patient's progress and response to current treatment plan. Encourage patient to contact the clinic if any concerns or significant changes in symptoms arise before the next scheduled appointment. 11/25/2023 Major depressive disorder, recurrent, mild (ICD-10 - F33.0) cont lamotrigine ER 100mg bid ; duloxetine 60mg daily, rexulti 1mg daily Strong CY inhibitors (eg, Qelbree Oral Capsule Extended Release 24 Hour 200 MG) may increase the serum concentration of duloxetine 1. FMLA paperwork issue: - The patient reported that their FMLA request was denied due to insufficient information. The patient will bring a blank copy of the FMLA paperwork for the provider to complete with the necessary information. 2. Home life stress: - The patient is experiencing increased stress at home due to a recent incident involving their daughter's lost cell phone. Plan: - Encourage the patient to practice stress management techniques and consider seeking additional support if needed. 3. Musculoskeletal pain: - The patient reported experiencing pain in their back, numbness in their arm, and discomfort in their left knee. Plan: - Recommend the patient to follow up with their primary care provider for further evaluation and management. 4. Depression: - The patient reported an increase in depressive symptoms in recent days. - Continue current medications for major depressive disorder: duloxetine 60mg once a day and Rexulti 1mg once a day. Plan: - Monitor the patient's mood and consider adjusting the treatment plan if symptoms persist or worsen. 5. Sleep issues: - The patient reported improved sleep quality after receiving an air conditioner for their room. Plan: - Encourage the patient to maintain good sleep hygiene and continue using their CPAP machine as prescribed. 6. ADHD: - The patient reported taking Qelbree 200mg (three capsules) once a day and clonidine ER 0.1mg (two capsules) twice a day for ADHD management. The patient has stopped taking Quviviq due to ineffectiveness. Plan: - Continue the current ADHD medications and monitor the patient's progress. 7. Mood stabilization: - The patient reported that lamotrigine ER 100mg twice a day has been helpful in stabilizing their mood and reducing irritability. Plan: - Continue the current medication regimen and monitor the patient's mood stability. 9. Medication refills: Plan: - Refills have been sent for the patient's ADHD medications (Qelbree and clonidine ER) and major depressive disorder medications (lamotrigine ER, duloxetine, and Rexulti). Follow-up: - Schedule a follow-up appointment in three months to monitor the patient's progress and adjust the treatment plan as needed. The patient should bring the [facility] paperwork to the next appointment for completion. 03/23/2024 Major depressive disorder, recurrent, mild (ICD-10 - F33.0) cont lamotrigine ER 100mg bid ; duloxetine 60mg daily, rexulti 1mg daily 1. Anxiety and stress - Patient reports increased stress due to personal life events, including divorce, dating, and issues with ex- and her children. - Plan: Continue current medications: lamotrigine ER 100 mg twice a day, duloxetine 60 mg daily, Rexulti 1 mg daily, and clonidine ER 0.12 mg twice a day. Encourage patient to engage in stress-reducing activities, such as exercise, meditation, or hobbies. Consider referral to a therapist for additional support in managing stress and anxiety. 2. Sleep disturbances - Patient reports sleepiness comes and goes, possibly related to stress and personal life events. - Plan: Encourage patient to maintain a consistent sleep schedule and practice good sleep hygiene. Monitor patient's response to current medications and consider adjustments if sleep disturbances persist. 3. Attention deficit disorder (ADD) - Patient reports a slightly higher case of ADD, possibly related to stopping medication. - Plan: Continue monitoring patient's response to current medications and consider adjustments if necessary. Encourage patient to implement strategies for managing ADD, such as organization and time management techniques. 4. Medication side effects - Patient reports feeling better after stopping Qelbree due to physical side effects. - Plan: Continue monitoring patient's response to current medications and consider adjustments if side effects persist or worsen. Encourage patient to report any new or concerning side effects. 5. Follow-up appointments - Plan: Schedule a follow-up appointment in 4-6 weeks to assess patient's progress and response to current treatment plan. Encourage patient to contact the clinic if any concerns or significant changes in symptoms arise before the next scheduled appointment. 07/20/2024 Encounter for screening for cardiovascular disorders (ICD-10 - Z13.6) 07/20/2024 Dietary counseling and surveillance (ICD-10 - Z71.3) 07/20/2024 Encounter for screening for depression (ICD-10 - Z13.31) 07/20/2024 Elizabeth Avalso presents with sleep disturbances, stress-related irritability, and a recent panic attack, following significant life changes including the departure of stressful housemates and reuniting with a partner. Sleep Disturbances Assessment: Patient reports altered sleep patterns, particularly on weekends, with early awakening between 4-5:15 AM despite going to bed at 10-11 PM. He expresses fatigue and need for naps, catching up on sleep during weekdays. Sleep disturbances appear to be exacerbated by stress and recent travel. Patient denies difficulty falling asleep but struggles with maintaining sleep, especially on weekends. Recent trip to [place] resulted in multiple awakenings and feeling non-functional by 7 PM. Plan: - Consider trial of Dayvigo for weekend use to improve sleep maintenance - Encourage consistent sleep schedule, including weekends - Advise on sleep hygiene practices - Follow up on effectiveness of interventions and any changes in sleep patterns Stress and Anxiety Assessment: Patient reports increased stress levels related to work, upcoming trips, and his son's ADD management. He experienced his first significant panic attack approximately three weeks ago, partly attributed to hunger. Stress is contributing to irritability. However, overall mood has improved following the departure of stressful housemates on April 01 and discontinuation of Qelbree (viloxazine). Plan: - Continue monitoring for anxiety symptoms and panic attacks - Discuss stress management techniques - Encourage regular meals to prevent hunger-induced anxiety - Follow up on effectiveness of current coping strategies Weight Loss Assessment: Patient reports a 20-25 pound weight loss, attributed partly to the previous use of Qelbree (viloxazine) and partly to reduced stress following the departure of negative influences from his living situation. Plan: - Monitor weight at follow-up appointments - Assess for any unintended continued weight loss - Encourage maintenance of healthy diet and lifestyle the note is transcribed using speech recognition software. It is a reflection of a visit with the patient. It might have some inaccuracy, including medication names and transcribing errors, though efforts have been made to correct them. 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
[2024-09-28 11:52] LABS: Alanine Aminotransferase 47 U/L (6-50); Albumin Level 4.5 g/dL (3.5-5.1); Alkaline Phosphatase 100 U/L (38-126); Anion Gap 10 mmol/L (4-12); Aspartate Amino Transferase 35 U/L (17-59); Bilirubin,Total 0.5 mg/dL (0.2-1.3); Blood Urea Nitrogen 12 mg/dL (9-20); Calcium 9.2 mg/dL (8.4-10.2); Carbon Dioxide 27 mmol/L (22-30); Chloride 103 mmol/L (98-107); Cholesterol 191 mg/dL (0-200); Estimated Glomerular Filt Rate > 60; Glucose 100 mg/dL (65-110); HDL Direct 32 mg/dL; Potassium 3.9 mmol/L (3.4-5.0); Sodium 140 mmol/L (137-145); Total Protein 7.8 g/dL (6.3-8.2); Triglycerides 175 mg/dL (<150)
[2024-09-28 12:02] LABS: LDL Cholesterol Direct 123 mg/dL
[2024-09-28 12:21] LABS: Prostate Specific Antigen 1.5 ng/mL (< OR = 4.0)
[2024-09-28 12:23] LABS: Hemoglobin A1C 5.8 % (<5.7)
== END 2024-09-28 10:38 | disposition home or self-care (01) ==
LOC: ANHLAB 10:39
PROVIDERS: PCP Family Medicine; Visit Provider Internal Medicine Cardiovascular Disease
DX: E78.5 Hyperlipidemia, unspecified (principal); Z12.5 Encounter for screening for malignant neoplasm of prostate; R39.15 Urgency of urination; Z13.9 Encounter for screening, unspecified
CPT/HCPCS: 36415; 80053; 80061; 83036; 84153; G0103